=== PATIENT | male | born 1935 | race Caucasian/White ===

== ENCOUNTER 2018-06-24 18:36 | Inpatient (IN) | payer OTHER ==
[2018-06-24 19:03] LABS: PLATELET COUNT 164 10^3/uL (150-400)
[2018-06-24 19:26] LABS: INR 1.26 (0.83-1.16); PROTIME(PATIENT) 15.3 SEC (12.0-15.0)
--- NOTE | 2018-06-24 19:29 | EDPHY ---
H & P Stated Complaint: syncope, back pain Time Seen by Provider: 06/24/18 18:45 HPI/ROS: CHIEF COMPLAINT: Right Upper abdominal and right flank pain HISTORY OF PRESENT ILLNESS: This is an 82-year-old male who was recently diagnosed with a right lung mass and 2 brain masses. He is presumed to have a lung primary. He was seen by Dr. Jacquelyn Bates today. Chemotherapy is planned for pain relief. He comes to the emergency department tonight by ambulance. The history is obtained primarily from his daughter and granddaughter and son. After seeing Dr. De Santiago today oxygen was delivered to their home at around 4:30 p.m.. The patient was walking to the bathroom, with support, when he suddenly stopped and seemed unable to move. It seemed as if he was distant. He had some shaking. He was lowered down and had a bout of watery stool followed by a solid bowel movement. He has recently been constipated but is moving his bowels for the last 4 days (after starting MiraLax ). The patient himself has been complaining of abdominal andflank pain since his arrival in the emergency department. He has been taking hydrocodone 5/ acetaminophen 325 every 6 hr, with his last dose at around 1:00 p.m.. His granddaughter tells me that his quality of life has markedly diminished over the last 2 weeks and she is currently living with him. Initially the paramedics stated that he had a syncopal episode but is granddaughter tells me that this is not the case. REVIEW OF SYSTEMS: A ten system review of systems was performed and is negative with the exception of the items mentioned in the HPI. Past medical history: 1. Right lung mass 2. 2 brain masses 3. Cardiac ablation for atrial fibrillation 4. AAA that is closely followed in without change. Past surgical history: Cardiac ablation Social history: He was living alone but is currently living with his granddaughter due to the recent decrease in his quality of life. [place]. He has a 65 pack-year history of tobacco abuse. Retired, used to work for the city [employer]. General Appearance: Alert. Vital signs reviewed. Eyes: Pupils equal and round, no conjunctival injection, no discharge. Anicteric. ENT, Mouth: Mucous membranes are moist, no oropharyngeal erythema or edema. Neck: No lymphadenopathy, supple. Respiratory: Diminished sounds right upper lung; no wheezes, rales, or rhonchi. Cardiovascular: Regular rate and rhythm; no murmur, rub, or gallop. Gastrointestinal: Abdomen is soft with hepatomegaly and mild tenderness RUQ, bowel sounds normal. Skin: Warm and dry, no rashes on exposed skin, normal color. Back: Nontender to palpation over the thoracolumbar spine. No CVAT. Extremities: No lower extremity edema, no calf tenderness or swelling. Neurological: Alert and oriented. Moving all four extremities easily and equally. Awake, answering some of my questions. Facial expressions symmetric, tongue midline. EOMI. PERRL. Psychiatric: Normal affect. - Personal History Current Tetanus/Diphtheria Vaccine: Unsure Current Tetanus Diphtheria and Acellular Pertussis (TDAP): Unsure - Social History Smoking Status: Former smoker Constitutional: Initial Vital Signs Temperature (C) 36.6 C 06/24/18 18:42 Heart Rate 104 H 06/24/18 18:42 Respiratory Rate 24 H 06/24/18 18:42 Blood Pressure 116/84 H 06/24/18 18:42 O2 Sat (%) 90 L 06/24/18 18:42 O2 Delivery Mode Nasal Cannula O2 (L/minute) 5 Allergies/Adverse Reactions: amoxicillin Allergy (Verified 06/24/18 18:41) Home Medications: Medication Instructions Recorded Fluticasone/Umeclidin/Vilanter 1 each IH DAILY 06/24/18 [Trelegy Ellipta 100-62.5-25] Polyethylene Glycol 3350 [Miralax 17 gm PO DAILY 06/24/18 17 gm (*)] Tamsulosin HCl [Flomax 0.4 MG (*)] 0.4 mg PO DAILY 06/24/18 Atropine 1% 2 drops SL Q30M PRN opht.btl 06/26/18 LORazepam [Ativan inj 2 mg/ml (*)] 1 mg SL Q1H #30 ml 06/26/18 morphINE PREPARATION SUPERVISOR FREEZING 30 mg IV PRN PRN wrapping checker 06/26/18 Medical Decision Making ED Course/Re-evaluation: 82 year old male with lung cancer, metastatic. He is known to have brain metastases and liver involvement. Brought by ambulance after a possible seizure (my interpretation) or presyncope. It seems that his cognition is slowed--possibly postictal, possibly due to brain mets/edema and mass effect, possibly due to ICH. Brain CT without contrast (no comparison study) shows two brain lesions, vasogenic edema, no significant mass effect (atrophy), no bleed. LFTs abnormal--this could contribute to confusion, altered mental status. Patient c/o flank and abdominal pain--will need better pain control. He is being admitted to the hospitalist service. His oncologist will be consulted. I do not find or suspect infection. Lactate is elevated, but I do not think that he is septic. I suspect poor liver function /clearance accounts for this elevation. I spoke with the family and patient about his wishes in the face of metastatic cancer. He does not have a clear code status and has not talked in detail about how to proceed (new diagnosis). This issue will be addressed by admitting staff and oncology. Differential Diagnosis: Syncope including but not limited to vasovagal syncope, arrhythmia, dehydration , and blood loss. - Data Points Laboratory Results: Laboratory Results 06/24/18 16:50 06/24/18 16:50 Medications Given: Discontinued Medications Atropine Sulfate (Atropine 1%) 2 drops SL Q30M PRN PRN Reason: Upper Airway Secretions,use1st Stop: 12/22/18 23:28 Last Admin: 06/26/18 13:47 Dose: 2 drops Dexamethasone (Decadron Injection) 4 mg IVP Q6H JORDON Stop: 12/22/18 17:59 Last Admin: 06/25/18 18:00 Dose: Not Given Hydromorphone HCl (Dilaudid) 0.2 - 0.4 mg IVP Q4HRS PRN PRN Reason: Pain, Severe Unable to Take PO Stop: 07/04/18 19:50 Last Admin: 06/24/18 23:26 Dose: 0.2 mg Hydromorphone HCl (Dilaudid) 0.2 - 0.4 mg IVP Q2H PRN PRN Reason: Pain, Severe Unable to Take PO Stop: 07/04/18 19:50 Last Admin: 06/25/18 07:45 Dose: 0.4 mg Hydromorphone HCl (Dilaudid) 0.4 - 0.6 mg IVP Q1H PRN PRN Reason: Pain, Severe Unable to Take PO Stop: 07/05/18 00:57 Last Admin: 06/25/18 13:45 Dose: 0.6 mg Sodium Chloride (Ns) 1,000 mls @ 125 mls/hr IV CONT JORDON Stop: 12/21/18 19:59 Last Admin: 06/26/18 07:37 Dose: 1,000 mls Morphine Sulfate 50 mg/ Sodium (Chloride) 55 mls @ 0 mls/hr IV CONT JORDON; Titrate PRN Reason: Protocol Stop: 07/05/18 08:44 Last Admin: 06/25/18 09:39 Dose: 55 mls Lorazepam (Ativan Injection) 1 mg IVP Q4HRS PRN PRN Reason: Anxiety, Unable to Take PO Stop: 12/22/18 08:04 Last Admin: 06/26/18 15:07 Dose: 1 mg Miscellaneous Medication (Fluticasone/Umeclidin/Vilanter [Trelegy Ellipta 100- 62.5-25]) 1 each IH DAILY JORDON Stop: 12/22/18 08:59 Last Admin: 06/26/18 08:15 Dose: Not Given Morphine Sulfate (Roxanol Oral Solution) 5 mg PO Q2HRS PRN PRN Reason: Pain, Severe Stop: 07/05/18 08:03 Last Admin: 06/25/18 10:25 Dose: 5 mg Morphine Sulfate (Morphine Mechanical Field Engineer) 30 mg IV PRN PRN; Protocol PRN Reason: Pain, Severe Unable To Take Po Stop: 07/05/18 13:48 Last Admin: 06/26/18 13:47 Dose: 30 mg Oxycodone HCl (Oxycodone Ir) 5 - 10 mg PO Q3HRS PRN PRN Reason: Pain, Severe Able to Take PO Stop: 07/04/18 19:50 Last Admin: 06/24/18 20:44 Dose: 10 mg Polyethylene Glycol (Miralax) 17 gm PO DAILY JORDON Stop: 12/22/18 08:59 Last Admin: 06/26/18 08:15 Dose: Not Given Prednisone (Prednisone) 10 mg PO DAILY JORDON Stop: 12/22/18 08:59 Last Admin: 06/26/18 08:15 Dose: Not Given Scopolamine HBr (Scopolamine Patch) 1 patch TD Q24H ONE Stop: 06/26/18 11:37 Last Admin: 06/26/18 13:16 Dose: 1 patch Tamsulosin HCl (Flomax) 0.4 mg PO DAILY JORDON Stop: 12/22/18 08:59 Last Admin: 06/26/18 08:15 Dose: Not Given Travoprost (Travatan Z 0.004%) 1 drops EACHEYE DAILY [facility] Stop: 12/22/18 08:59 Last Admin: 06/26/18 08:16 Dose: Not Given Departure - Departure Disposition: [facility] Inpatient Acute Clinical Impression: Metastatic cancer Condition: Fair
[2018-06-24] MEDS ORDERED: ACETAMINOPHEN 325 MG TAB PO PRN (19:51)
[2018-06-24] MEDS ORDERED: oxyCODONE IR 5 MG TAB PO PRN (19:51)
[2018-06-24] MEDS ORDERED: ONDANSETRON 4 MG/2 ML VIAL IVP PRN (19:51)
[2018-06-24] MEDS ORDERED: ONDANSETRON DISINTEGRATING 4 MG TAB PO PRN (19:51)
[2018-06-24] MEDS ORDERED: PROMETHAZINE HCL 25 MG/ML INJ IVP PRN (19:51)
[2018-06-24] MEDS ORDERED: HYDROmorphONE/DILAUDID 1 MG/ML INJ IVP PRN (19:51)
--- NOTE | 2018-06-24 20:58 | GHP ---
[f rep st] HISTORY AND PHYSICAL DATE OF ADMISSION: 06/24/2018 HISTORY OF PRESENT ILLNESS: The patient is a pleasant 82-year-old gentleman with recently diagnosed metastatic lung cancer with metastases to his liver, brain and possibly kidneys. He was diagnosed a couple of weeks ago after 2 bouts of recurrent pneumonia which led to a CT scan and what sounds like a tissue biopsy. This was all done at [facility]. He saw Dr. Cooper Valladares today for planning for pall iative chemotherapy. It sounds like over the last couple of weeks he has had significant functional decline. 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 Today, he got home from the appointment, and he was walking with his gr anddaughter, he became blank stare. He had some incontinence. They put him in shower and cleaned hi m up and took him a bit of time to recover. When I speak with the patient, he is in bed lying on his side. Not really acknowledging I am there, although he will communicate with me. He is also complaining of pain. When I asked him if his breat pearl would get so bad he would need a breathing machine or be made comfortable, he says to be made co mfortable. He made some statements to the effect that he is ready to pass away. REVIEW OF SYSTEMS: Complete 10-point review of systems conducted. Negative except as noted in the H PI. PAST MEDICAL HISTORY: An arrhythmia ablation I assume with this supraventricular arrhythmia. ALLERGIES: Amoxicillin. MEDICATIONS: Home medications are none. SOCIAL HISTORY: He smoked for 65 years, quit recently. He does not drink much alcohol. [place]. Worked for the [employer]. FAMILY HISTORY: Parents . PHYSICAL EXAMINATION: VITAL SIGNS: Temp 36.6, blood pressure 116/84, pulse 104, breathing 24 times a minute, 90% on 5 L. GENERAL: Uncomfortable lying on his side not particularly participating in th e conversation. HEENT: Sclerae anicteric. Oropharynx clear. Mucous membranes moist. NECK: Suppl e. No lymphadenopathy or JVD. LUNGS: Show decreased breath sounds in the right upper lung field. Otherwise clear to auscultation without wheeze. ABDOMEN: Soft. There is some fullness suggestive o f an enlarged liver with some pain without rebound or guarding over that area. EXTREMITIES: He has no lower extremity edema. Calves nontender. SKIN: Without rash. NEUROLOGIC: Nonfocal. DIAGNOSTIC DATA: Sodium is 129, potassium 5.0, chloride 95, bicarb 18, BUN 30, creatinine 0.8, gluco se 113. Venous lactate is elevated at 7.4. INR is pending. White count 14, hematocrit 42, platelet s are 164. Chest x-ray interpreted by me shows right upper lobe mass without clear infiltrate. I have discussed the case with Dr. Enid Pereyra, as well as Dr. Bowen Ramirez. ASSESSMENT AND PLAN: An 82-year-old gentleman with metastatic lung cancer here with possible seizure as well as failure to thrive. 1. Possible seizure. Noncontrast head CT is pending. 2. Elevated lactate. I think this is most consistent with poor clearance from a diffusely diseased liver. He does not have sepsis. 3. Plan of care. The patient is made do not resuscitate today. I discussed hospice with the patien t and with family members, and it sounds like this is a reasonable choice for him. I have written in a hospice evaluation. They seemed open to this. 4. Question possible seizure. Head CT pending. 5. Lung cancer as above. It is not clear that he is going to make it to palliative chemotherapy. 6. Hyponatremia. The patient is euvolemic. The patient is probably slightly dry with poor p.o. int sirena. He is probably poor solute and slightly hypovolemic. We will give him some intravenous fluids. 7. Code. Do not resuscitate. DISPOSITION: Inpatient status. Hospice evaluation. /[id number]/MODL
[2018-06-24] MEDS: NS 1,000 ML IV SCH (22:29)
[2018-06-24] MEDS ORDERED: ALBUTEROL 60 PUFFS/8 GM MDI IH PRN (22:30)
[2018-06-25] MEDS: HYDROmorphONE/DILAUDID 1 MG/ML INJ IVP PRN ×3 (01:58→07:45)
[2018-06-25] MEDS: NS 1,000 ML IV SCH (05:06)
[2018-06-25] MEDS ORDERED: morphINE 10 MG/0.5 ML UDSYR PO PRN (08:04)
[2018-06-25] MEDS ORDERED: HYDROmorphONE/DILAUDID 1 MG/ML INJ IVP PRN ×2 (08:05)
[2018-06-25] MEDS: LORazepam 2 MG/ML INJ IVP PRN ×2 (08:38→13:40)
[2018-06-25] MEDS ORDERED: morphINE 50 MG in NS 50 ML IV SCH (08:45)
[2018-06-25] MEDS: Fluticasone/Umeclidin/Vilanter [Trelegy Ellipta 100-62.5-25] IH SCH (09:19)
--- NOTE | 2018-06-25 09:50 | ASMTCMCOM ---
CM Note CM Note Notes: Patient admitted with AMS and intractable pain. History significant for cancer with metastatic disease, Hospice consult ordered per physician. referral via allscripts to [facility]. Zoe Alcantara to see family about 11:30 am. CM to follow. Plan: Likely home with hospice. Date Signed: 06/25/2018 09:49 AM Electronically Signed By:Sari Moulton RN
--- NOTE | 2018-06-25 10:09 | PDMN ---
Medical Necessity Medical necessity: Pt meets IP criteria per & [facility] Medical Oncology; est los >2 mn for eval/tx of possible seizure & failure to thrive w/pain & hyponatremia r/t metastatic lung cancer w/mets to liver, brain & possibly kidneys; head CT pending; requiring further monitoring, IVFs, pain management & Hospice consult; comorbid advanced age, recurrent pneumonia; per order & H&P 04/02
[2018-06-25] MEDS: POLYETHYLENE GLYCOL 3350 17 GM PKT PO SCH (10:27)
[2018-06-25] MEDS: TRAVOPROST Z 0.004% 2.5 ML OPHT.BTL EACHEYE SCH (10:28)
[2018-06-25] MEDS: predniSONE 10 MG TAB PO SCH (10:28)
[2018-06-25] MEDS: TAMSULOSIN HCL 0.4 MG CAP PO SCH (10:28)
[2018-06-25] MEDS ORDERED: NALOXONE HCL 0.4 MG/ML INJ IVP PRN (13:49)
[2018-06-25] MEDS ORDERED: morphINE PCA 30 MG/30 ML PCA IV ONE (16:31)
[2018-06-25] MEDS ORDERED: DEXAMETHASONE 4 MG/ML VIAL ONE (16:32)
[2018-06-25] MEDS: morphINE PCA 30 MG/30 ML PCA IV PRN (16:50)
[2018-06-25] MEDS ORDERED: DEXAMETHASONE 4 MG/ML VIAL IVP SCH (18:00)
[2018-06-25] MEDS ORDERED: KETOROLAC 15 MG/1 ML SDV IVP PRN (18:24)
--- NOTE | 2018-06-25 19:31 | GCON ---
[f rep st] CONSULTATION INPATIENT ONCOLOGY CONSULTATION DATE OF CONSULTATION: 06/25/2018 OUTPATIENT ONCOLOGIST: Dr. Cooper Valladares. REQUESTING PHYSICIAN: Dr. Chris Brenner. REASON FOR CONSULTATION: Small-cell lung cancer. HISTORY OF PRESENT ILLNESS: Mr. Serrano is an 82-year-old male with recently diagnosed non-small cell l kayla cancer. He presented with several weeks of cough, dyspnea, and intermittent hemoptysis. CT taye ogram revealed an 11 cm right upper lobe mass. There was also evidence of liver metastases. Biopsy revealed a small cell carcinoma. PET-CT scanning revealed very extensive disease including 12.3 cm l eft upper lobe mass, extensive mediastinal adenopathy and a mass in the liver measuring 21 x 12 cm as well as multiple upper retroperitoneal lymph nodes. He met with Dr. Valladares for the 1st time yesterday and discussed palliative treatment with carboplati n, etoposide, and atezolizumab; however, the patient's clinical condition deteriorated rapidly over t he day and became very confused and soiled himself. He was taken to the emergency department. A bra in MRI previously revealed presence of a 3.[address] of the brain did not reveal ble eding. The patient is very ill and discussed with the hospitalist this situation. The patient elect ed to pursue comfort care only and not proceed with chemotherapy. Overnight, he was having significant abdominal pain due to the liver tumor, but this has been better controlled with intermittent doses of IV Dilaudid. PAST MEDICAL HISTORY: Unremarkable. CURRENT MEDICATIONS: Include Roxanol and Dilaudid. ALLERGIES: He is allergic to amoxicillin. SOCIAL HISTORY: Noncontributory. He is a former smoker. Denies alcohol use. REVIEW OF SYSTEMS: Pertinent positives as in HPI. A 14-point review of systems negative. EXAMINATION: VITAL SIGNS: Temperature is 36.2, blood pressure 102/59, heart rate 82, oxygen saturat ion 90% on 5 L. GENERAL: He was sleeping, did not appear to be in any acute distress. LUNGS: Nota ble for decreased breath sounds bilaterally. CARDIAC EXAMINATION: Regular rate and rhythm. No murm urs, gallops, rubs. ABDOMEN: Notable for a mass on the right upper quadrant. EXTREMITIES: Without edema. SKIN: No petechiae, purpura. NEUROLOGICAL: He was resting. LABORATORY DATA: White count 13.8, hemoglobin 13.7, platelets of 162. Sodium 129, potassium 5, chlo ride 97, bicarb 18, BUN 30, creatinine 0.8, total bilirubin 2.1, AST 204, ALT 115, alkaline phosphata se 88, total protein 6.4, albumin 3.1. IMPRESSION: This is an 82-year-old man with a very aggressive, very advanced small-cell lung cancer of the lung. He now presents with acute confusion, possibly due to metabolic encephalopathy plus the presence of brain metastasis. His condition has deteriorated fairly rapidly over the past 24 hours. The patient and his family have already decided to pursue comfort care, which I think is reasonable g iven the circumstances. This is not a curable malignancy given its extensive nature and I think that treatment with multi agent chemotherapy would be very difficult for him and would carry a fairly hig h mortality rate. RECOMMENDATIONS: 1. We will put the patient on a continuous morphine drip for better pain control. 2. Hospice consult. We will continue to follow patient with you while he is in the hospital. /[id number]/MODL
[2018-06-25] MEDS ORDERED: GLYCOPYRROLATE 0.2 MG/1 ML VIAL IVP/IM PRN (23:29)
[2018-06-26] MEDS: ATROPINE 1% 5 ML OPHT.BTL SL PRN ×5 (00:08→13:47)
[2018-06-26] MEDS: morphINE PCA 30 MG/30 ML PCA IV PRN ×2 (01:59→13:47)
[2018-06-26] MEDS: NS 1,000 ML IV SCH (07:37)
[2018-06-26] MEDS: TAMSULOSIN HCL 0.4 MG CAP PO SCH (08:15)
[2018-06-26] MEDS: predniSONE 10 MG TAB PO SCH (08:15)
[2018-06-26] MEDS: POLYETHYLENE GLYCOL 3350 17 GM PKT PO SCH (08:15)
[2018-06-26] MEDS: Fluticasone/Umeclidin/Vilanter [Trelegy Ellipta 100-62.5-25] IH SCH (08:15)
[2018-06-26] MEDS: TRAVOPROST Z 0.004% 2.5 ML OPHT.BTL EACHEYE SCH (08:16)
--- NOTE | 2018-06-26 09:51 | ASMTCMCOM ---
CM Note CM Note Notes: Patient to go to [facility] on GIP hospice bed. Spoke with Zoe Dorsey who is securing equipment and details for patient transfer. Family at bedside. CM to follow for needs. Plan: Dc to home. Date Signed: 06/26/2018 09:51 AM Electronically Signed By:Sari Moulton RN
[2018-06-26 11:17] VITALS: BP 107/63
[2018-06-26] MEDS ORDERED: SCOPOLAMINE HYDROBROMIDE 1 MG/3 DAYS PATCH TD ONE (11:36)
--- NOTE | 2018-06-26 11:42 | PDIAF ---
- Diagnosis Diagnosis: Metastatic Cancer Code Status: Do Not Resuscitate - Medication Management Discharge Medications: electronically signed and located in the Home Medication List. - Orders Services needed: Registered Nurse, Certified Nuclear Physics Professor, Master Leasing Machine Tender - Follow Up Care Current Providers and Referrals: Patient,NotPresent [Unknown] - As per Instructions
--- NOTE | 2018-06-26 12:16 | GDS ---
[f rep st] DISCHARGE SUMMARY ALL DIAGNOSES: 1. Metastatic small cell lung cancer. 2. Metabolic encephalopathy. 3. Elevated lactate. 4. Liver disease. 5. Hyponatremia. HOSPITAL COURSE: This is an 82-year-old man with a relatively recent diagnosis of advanced metastati c small cell lung cancer. He was initially admitted after seeing his Oncologist the day of admission , who was planning for palliative care, became unresponsive later at home. It is unclear if he had a seizure. He had a very rapid decline. He has significant pain from his cancer. He has been placed on a morphine ASSISTANT PROFESSOR. He was seen by hospice. Family elects to go with hospice care at [facility]. G iven his requirement for intravenous morphine, he will go to general inpatient hospice. He was seen by Oncology, who agrees with this as his prognosis is very poor given the advanced nature of his smal l cell cancer. I filled out a MOST form for him yesterday making him a do not resuscitate with comfo rt based care only. Give him a scopolamine patch, atropine for his secretions. He is otherwise disc harged in critical condition to hospice. BILLING: I spent more than 30 minutes on the day of discharge coordinating care. /[id number]/MODL
--- NOTE | 2018-06-26 13:33 | ASMTLACE ---
LACE Length of stay for Answers: 1 day current admission Acuity / Level of Answers: Yes Care: Did the patient have an inpatient admission? Comorbidities - select Answers: Any tumor (including all that apply lymphoma or leukemia) # of Emergency department Answers: 1-2 visits in the last 6 months Score: 7 Date Signed: 06/26/2018 01:32 PM Electronically Signed By:Sari Moulton RN
--- NOTE | 2018-06-26 13:36 | ASMTCMCOM ---
CM Note CM Note Notes: PASSR completed. All final orders to both [facility] and [facility]. PCS form completed. Transport about 2:30 pm CM available should other needs arise. Plan: Dc to [facility] inpatient bed. Date Signed: 06/26/2018 01:35 PM Electronically Signed By:Sari Moulton RN
[2018-06-26] MEDS: LORazepam 2 MG/ML INJ IVP PRN (15:07)
[2018-06-27] MEDS ORDERED: PATCH REMOVAL 1 EA PATCH TD ONE (11:37)
== END 2018-06-26 15:15 | disposition hospice, home (50) | DRG 71 ==
LOC: EDUNIT# → F1N 22:20
PROVIDERS: ADMIT Internal Medicine; ATTEND Student in an Organized Health Care Education/Training Program
DX: G93.41 Metabolic encephalopathy (principal); C34.11 Malignant neoplasm of upper lobe, right bronchus or lung; C78.7 Secondary malignant neoplasm of liver and intrahepatic bile duct; C79.31 Secondary malignant neoplasm of brain; E87.1 Hypo-osmolality and hyponatremia; I71.4 Abdominal aortic aneurysm, without rupture; Z87.891 Personal history of nicotine dependence; Z66 Do not resuscitate
CPT/HCPCS: J1100; J1170; J2060; J2270